=== PATIENT | female | born 1965 | race Caucasian/White ===

== ENCOUNTER 2021-01-16 21:22 | Emergency (ER) | payer OTHER ==
[~2021-01-16] VITALS: Ht 165.1 cm; Wt 68.0 kg
[~2021-01-16 21:22] MED LIST: ALPRAZOLAM 0.50.5 M1 PO; HYDROCODON-ACE1 EAC7; PENICILLIN VK500 M1 PO; SERTRALINE HCL50 MG PO; ULTRAM 50MG TAB50 MG PO; VALCYCLOVIR
[2021-01-16 21:28] VITALS: BP 125/62
[2021-01-16] MEDS ORDERED: HYDROCODON-ACE1 EAC8 PO (21:36)
[2021-01-16] MEDS ORDERED: IBUPROFEN 800800 MG PO (21:36)
[2021-01-16] MEDS ORDERED: CLEOCIN HCL300 MG PO (21:36)
== END 2021-01-16 21:51 | disposition home or self-care (01) ==
LOC: M.ERS 21:22
DX: K04.7 Periapical abscess without sinus (principal); Z88.6 Allergy status to analgesic agent; Z88.2 Allergy status to sulfonamides; Z88.1 Allergy status to other antibiotic agents; Z98.890 Other specified postprocedural states; Z90.49 Acquired absence of other specified parts of digestive tract